=== PATIENT | female | born 1940 | race Caucasian/White ===

== ENCOUNTER 2021-11-22 17:04 | Inpatient (IN) | payer OTHER, SELFPAY ==
[~2021-11-22] VITALS: Ht 165.1 cm; Wt 60.8 kg
[2021-11-22 17:05] VITALS: BP_SYST 134
--- NOTE | 2021-11-22 17:05 | NUR ---
PT TRIAGED AND PLACED IN WAITING ROOM FOR AVAILABLE BED
--- NOTE | 2021-11-22 17:23 | NUR ---
Placed in room 2 . Placed on site monitor, blood pressure machine and pulse oximeter. To gown for exam. Side rails up. Report given to LIOR WONG.
--- NOTE | 2021-11-22 17:32 | NUR ---
BIB ALS FOR DESATURATION PER FAMILY. DR VILLARREAL AT BEDSIDE
--- NOTE | 2021-11-22 17:34 | NUR ---
ON MONITOR IN AFIB WITH RVR
[2021-11-22] MEDS ORDERED: dilTIAZem HCL IVP 5 MG/ML VIAL ONE (17:37)
[2021-11-22] MEDS ORDERED: IPRATROPIUM/ALBUTEROL SULFATE 3 ML AMPUL.NEB (DUONEB) INH ONE (17:45)
[2021-11-22] MEDS ORDERED: dilTIAZem HCL IVP 5 MG/ML VIAL IVP ONE ×2 (17:45→18:00)
[2021-11-22] MEDS ORDERED: guaiFENesin/DEXTROMETHORPHAN 10 ML UDC PO ONE (18:15)
[2021-11-22 18:22] LABS: ANION GAP 5 (5-15); CALCIUM 9.6 mg/dL (8.4-11.0); CHLORIDE 100 mmol/L (98-107); CREATININE 0.83 mg/dL (0.55-1.30); GLUCOSE 199 mg/dL (70-99); POTASSIUM 3.7 mmol/L (3.5-5.1); SODIUM SERUM 139 mmol/L (136-145); UREA NITROGEN, BLOOD 22 mg/dL (8-21)
[2021-11-22 18:28] LABS: BASOPHILS # (AUTO) 0.1 K/uL (0.0-0.2); BASOPHILS % (AUTO) 0.4 % (0.0-2.0); EOSINOPHILS % (AUTO) 0.1 % (0.0-4.0); HEMATOCRIT 39.5 % (36-48); HEMOGLOBIN 12.6 g/dL (12.0-16.0); LYMPHOCYTES # (AUTO) 0.5 K/uL (1.0-5.5); LYMPHOCYTES % (AUTO) 2.7 % (20.5-51.5); MEAN CORPUSCULAR HEMOGLOBIN 28 pg (27-31); MEAN CORPUSCULAR HGB CONC 32 % (32-36); MEAN CORPUSCULAR VOLUME 89 fL (79.0-98.0); MONOCYTES # (AUTO) 1.4 K/uL (0.0-1.0); MONOCYTES % (AUTO) 7.3 % (1.7-9.3); NEUTROPHILS # (AUTO) 16.9 K/uL (1.8-7.7); NEUTROPHILS % (AUTO) 89.5 % (40.0-70.0); PLATELET COUNT (AUTO) 158 K/uL (130-430); RED BLOOD CELL COUNT(AUTO) 4.45 MIL/uL (4.2-6.2); WHITE BLOOD COUNT (AUTO) 18.9 K/uL (4.8-10.8)
[2021-11-22 18:30] LABS: ALANINE AMINOTRANSFERASE 37 U/L (12-78); ALBUMIN 3.1 g/dL (3.4-4.8); ASPARTATE AMINOTRANSFERASE 26 U/L (10-37); LIPASE 274 U/L (73-393); PHOSPHORUS 3.9 mg/dL (2.7-4.5); TOTAL BILIRUBIN 0.6 mg/dL (0.0-1.0)
[2021-11-22] MEDS ORDERED: AZITHROMYCIN 250 MG TABLET PO ONE (19:15)
[2021-11-22] MEDS ORDERED: cefTRIAXone 1 GM in D5W 50 ML IV ONE (19:15)
--- NOTE | 2021-11-22 19:16 | NUR ---
REPORT TO WHITNEY
--- NOTE | 2021-11-22 19:17 | NUR ---
Assumed care of patient at change of shift. Introduced self to patient, positioned for comfort. currently on nrb w/ pox 100%. iv site to left forearm patent and intact. Spouse at bedside. bed to low position sr up, continue to monitor. Patient resting quietly. No acute distress noted. Vital signs within normal range.
[2021-11-22] MEDS ORDERED: cefTRIAXone 1 GM VIAL ONE (19:34)
--- NOTE | 2021-11-22 19:45 | NUR ---
Medicated 1gm of rocephin ivpb per MD orders. IV abx infusing with no s/s of infiltration at this time. Will cont to monitor and observe for any adverse reaction. continue to monitor.
[2021-11-22] MEDS ORDERED: AZITHROMYCIN 500 MG/VIAL (ZITHROMAX) IV ONE (19:49)
--- NOTE | 2021-11-22 20:22 | NUR ---
Medicated Azithromycin 500mg ivpb per MD orders. IV abx infusing with no s/s of infiltration at this time. Will cont to monitor and observe for any adverse reaction. bed to low position sr up. No adverse reaction noted to iv rocephin.
[2021-11-22] MEDS: DEXAMETHASONE SOD PHOSPHATE 10 MG/ML VIAL IVP SCH (21:30)
--- NOTE | 2021-11-22 22:44 | NUR ---
no change from previous assessment. bed to low position sr up, continue to monitor. Patient resting quietly. No acute distress noted. Vital signs within normal range.
--- NOTE | 2021-11-23 00:30 | NUR ---
Patient resting quietly. No acute distress noted. Vital signs within normal range. in no acute distress, still remains on 15 liters Nrb. continue to monitor.
--- NOTE | 2021-11-23 02:30 | NUR ---
Note byron in EDM - 11/23/21 at 0330 by [email or web address] Patient resting quietly. No acute distress noted. Vital signs within normal range. in no acute distress, still remains on 15 liters Nrb. continue to monitor.
--- NOTE | 2021-11-23 02:30 | NUR ---
Patient resting quietly. No acute distress noted. Vital signs within normal range. in no acute distress, still remains on 15 liters Nrb. continue to monitor. patient medicated as ordered w/ decadron ivp
[2021-11-23] MEDS: DEXAMETHASONE SOD PHOSPHATE 10 MG/ML VIAL IVP SCH (07:43)
[2021-11-23] MEDS ORDERED: METOPROLOL TARTRATE 5 MG/5 ML AMPUL ONE (07:55)
--- NOTE | 2021-11-23 07:55 | NUR ---
DR MIRANDA AT BEDSIDE PT IN AFIB WITH RVR BP STABLE. 5MG LOPRESSOR IVP GIVEN BP 148/41 HR REMAINS 122 AFTER LOPRESSOR PUSH
--- NOTE | 2021-11-23 08:00 | NUR ---
pt having trouble swallowing medication even when crushed. md aware
[2021-11-23] MEDS ORDERED: METOPROLOL TARTRATE 5 MG/5 ML AMPUL IVP ONE (08:15)
[2021-11-23] MEDS ORDERED: AZITHROMYCIN 500 MG in NS 250 ML IV ONE (09:00)
--- NOTE | 2021-11-23 09:04 | NUR ---
RT PLACED PT ON HF O2 20 LITERS 80% FIO2 PT TOLERATING WELL
--- NOTE | 2021-11-23 09:17 | NUR ---
WAITING IV PUMP TO TO ADM IV ABX
--- NOTE | 2021-11-23 09:24 | NUR ---
ULTRASOUND AT BEDSIDE
[2021-11-23] MEDS ORDERED: METOPROLOL TARTRATE 25 MG TABLET ONE (09:35)
[2021-11-23] MEDS: METOPROLOL TARTRATE 50 MG TABLET PO SCH ×2 (10:38→23:38)
[2021-11-23 11:08] LABS: ANION GAP 6 (5-15); CALCIUM 9.3 mg/dL (8.4-11.0); CHLORIDE 100 mmol/L (98-107); CREATININE 0.78 mg/dL (0.55-1.30); GLUCOSE 226 mg/dL (70-99); POTASSIUM 4.6 mmol/L (3.5-5.1); SODIUM SERUM 141 mmol/L (136-145); UREA NITROGEN, BLOOD 20 mg/dL (8-21)
[2021-11-23 11:14] LABS: BASOPHILS % (AUTO) 0.2 % (0.0-2.0); HEMATOCRIT 38.8 % (36-48); HEMOGLOBIN 12.4 g/dL (12.0-16.0); LYMPHOCYTES # (AUTO) 0.3 K/uL (1.0-5.5); LYMPHOCYTES % (AUTO) 3.9 % (20.5-51.5); MEAN CORPUSCULAR HEMOGLOBIN 29 pg (27-31); MEAN CORPUSCULAR HGB CONC 32 % (32-36); MEAN CORPUSCULAR VOLUME 89 fL (79.0-98.0); MONOCYTES # (AUTO) 0.1 K/uL (0.0-1.0); MONOCYTES % (AUTO) 1.4 % (1.7-9.3); NEUTROPHILS # (AUTO) 7.5 K/uL (1.8-7.7); NEUTROPHILS % (AUTO) 94.5 % (40.0-70.0); PLATELET COUNT (AUTO) 140 K/uL (130-430); RED BLOOD CELL COUNT(AUTO) 4.34 MIL/uL (4.2-6.2); RED CELL DISTRIBUTION WIDTH 14.6 % (9.0-15.0)
[2021-11-23 11:22] LABS: C-REACTIVE PROTEIN QUANT 1.9 mg/dL (0-0.5)
[2021-11-23] MEDS ORDERED: ACETAMINOPHEN 325 MG TABLET PO PRN ×2 (11:30→11:45)
[2021-11-23] MEDS ORDERED: ONDANSETRON HCL 4 MG/2 ML VIAL IVP PRN (11:30)
[2021-11-23] MEDS ORDERED: LORazepam 2 MG/ML VIAL IVP PRN (11:30)
[2021-11-23] MEDS ORDERED: IPRATROPIUM BROM 0.5 MG/2.5 ML VIAL.NEB (ATROVENT) INH PRN (11:45)
[2021-11-23] MEDS ORDERED: ALBUTEROL SULFATE 0.083% 2.5 MG/3 ML VIAL.NEB INH PRN (11:45)
[2021-11-23] MEDS: AZITHROMYCIN 500 MG in NS 250 ML IV SCH (11:49)
[2021-11-23] MEDS ORDERED: ENOXAPARIN SODIUM 40 MG/0.4 ML SYRINGE SUBCUT ONE (12:00)
[2021-11-23] MEDS: PIPERACILLIN/TAZO 2.25G/DEX-IS 50 ML IV SCH ×2 (12:15→23:24)
[2021-11-23] MEDS: ALBUTEROL MDI INHALATION 8 GM INH INH SCH ×2 (14:50→21:09)
[2021-11-23] MEDS ORDERED: ALBUTEROL SULFATE 0.083% 2.5 MG/3 ML VIAL.NEB INH SCH (15:00)
[2021-11-23] MEDS ORDERED: IPRATROPIUM BROM 0.5 MG/2.5 ML VIAL.NEB (ATROVENT) INH SCH (15:00)
--- NOTE | 2021-11-23 15:07 | NUR ---
pt drank 2 apple juices
--- NOTE | 2021-11-23 16:35 | NUR ---
pt taking grap juice without incident
[2021-11-23] MEDS ORDERED: RIVAROXABAN 15 MG TABLET PO SCH (18:00)
--- NOTE | 2021-11-23 18:01 | NUR ---
pt incontinent of urine bed changed pt cleaned
--- NOTE | 2021-11-23 18:38 | NUR ---
zosyn abx delayed due to rimdisvier infusing
--- NOTE | 2021-11-23 19:16 | NUR ---
REPORT TO ERIKA TINAJERO
--- NOTE | 2021-11-23 19:30 | NUR ---
in bed, not in distress, a&0x3, with iv antibitics ongoing on the left forearm.
--- NOTE | 2021-11-23 23:40 | NUR ---
vit c not available, not given, charge nurse informed, pharmacy informed,
[2021-11-24] MEDS: ALBUTEROL MDI INHALATION 8 GM INH INH SCH ×6 (00:30→23:00)
--- NOTE | 2021-11-24 01:11 | NUR ---
asleep, arousable, not in distress, all needs attended, denies any discomfort.
[2021-11-24] MEDS: ASCORBIC ACID 500 MG TABLET PO SCH ×3 (01:12→23:24)
[2021-11-24] MEDS: PIPERACILLIN/TAZO 2.25G/DEX-IS 50 ML IV SCH ×4 (01:14→18:50)
--- NOTE | 2021-11-24 02:21 | NUR ---
asleep, arousable, no needs requested at this time.
--- NOTE | 2021-11-24 03:37 | NUR ---
asleep, arousable, no needs requested at this time.
--- NOTE | 2021-11-24 05:49 | NUR ---
asleep, arousable, not in distress.
[2021-11-24 06:14] LABS: HEMATOCRIT 38.1 % (36-48); HEMOGLOBIN 12.1 g/dL (12.0-16.0); LYMPHOCYTES # (AUTO) 0.8 K/uL (1.0-5.5); MEAN CORPUSCULAR HEMOGLOBIN 28 pg (27-31); MEAN CORPUSCULAR HGB CONC 32 % (32-36); MEAN CORPUSCULAR VOLUME 89 fL (79.0-98.0); MONOCYTES % (AUTO) 7.5 % (1.7-9.3); NEUTROPHILS % (AUTO) 86.5 % (40.0-70.0); PLATELET COUNT (AUTO) 150 K/uL (130-430); RED BLOOD CELL COUNT(AUTO) 4.27 MIL/uL (4.2-6.2); RED CELL DISTRIBUTION WIDTH 14.6 % (9.0-15.0); WHITE BLOOD COUNT (AUTO) 13.9 K/uL (4.8-10.8)
[2021-11-24 06:37] LABS: ANION GAP 5 (5-15); CALCIUM 9.2 mg/dL (8.4-11.0); CHLORIDE 99 mmol/L (98-107); CREATININE 0.56 mg/dL (0.55-1.30); GLUCOSE 135 mg/dL (70-99); POTASSIUM 3.4 mmol/L (3.5-5.1); SODIUM SERUM 140 mmol/L (136-145); UREA NITROGEN, BLOOD 19 mg/dL (8-21)
[2021-11-24] MEDS: IPRATROPIUM/ALBUTEROL SULFATE 3 ML AMPUL.NEB (DUONEB) INH SCH ×3 (07:00→15:00)
[2021-11-24 07:14] LABS: C-REACTIVE PROTEIN QUANT 2.1 mg/dL (0-0.5)
--- NOTE | 2021-11-24 07:38 | NUR ---
Assumed care of pt. currently sleeping, NAD, was reported pt. was awake most of the night so POC to let pt. sleep till require meds or intervention
[2021-11-24 08:26] LABS: ERYTHROCYTE SEDIMENTATION RATE 14 MM/HR (0-20)
--- NOTE | 2021-11-24 10:30 | NUR ---
incontinent, pericare done linens changed, assisted with breakfast, pt. alert but confussed is cooperative
[2021-11-24] MEDS: DEXAMETHASONE SOD PHOSPHATE 10 MG/ML VIAL IVP SCH (10:45)
[2021-11-24] MEDS: METOPROLOL TARTRATE 50 MG TABLET PO SCH ×2 (10:46→22:49)
[2021-11-24] MEDS: CHOLECALCIFEROL (VITAMIN D3) 5,000 UNIT TABLET PO SCH (10:46)
[2021-11-24] MEDS: ENOXAPARIN SODIUM 40 MG/0.4 ML SYRINGE SUBCUT SCH (10:48)
--- NOTE | 2021-11-24 10:52 | NUR ---
Dr. Galeana at bedside
[2021-11-24] MEDS ORDERED: amLODIPine BESYLATE 5 MG TABLET PO ONE (11:30)
[2021-11-24] MEDS ORDERED: POTASSIUM CHLORIDE 20 MEQ TAB.PRT.SR PO ONE (11:30)
[2021-11-24] MEDS ORDERED: POTASSIUM CHLORIDE 20 MEQ/PKT PACKET PO ONE (11:45)
--- NOTE | 2021-11-24 12:11 | NUR ---
KDur tablets not given, pt. could not swallow, pharmacy changed to powder
--- NOTE | 2021-11-24 12:23 | NUR ---
RT here HIFLO decreased to 20L/min. and 60%
[2021-11-24] MEDS: AZITHROMYCIN 500 MG in NS 250 ML IV SCH (13:53)
--- NOTE | 2021-11-24 14:40 | NUR ---
RT NOTE: 1440 Patient moved from ER 2 to room 134 A with LIOR Rutherford. Patient was placed on 8LPM oxymizer, SpO2 between 97-99%. Patient alert and oriented. No respiratory distress noted. Will keep patient on oxymizer and will titrate as tolerated. No other issues during transport.
--- NOTE | 2021-11-24 14:45 | NUR ---
Patient will be admitted to care of Admitted to tele unit. Will go to room 134A. Belongings list completed. Complete and up to date summary report printed. SBAR report given at bedside with Sudana opportunity for questions.
--- NOTE | 2021-11-24 14:46 | NUR ---
Admission Note Received patient from ER with diagnosis of . Initial Plan of Care discussed-patient verbalized understanding. Oriented to room, call light, pain management and safety.vitals stabel pt in on 8 liter oximizer saturation 100%. denies marycarmen pain or sob.will conitnue to monitor
[2021-11-24 14:47] VITALS: BP_SYST 104
--- NOTE | 2021-11-24 17:30 | NUR ---
PT STABLE NOTIN ACUTE DISTRESS. DENIES ANY PAIN OR SOB. DUE MEDS GIVEN ORDERED.
--- NOTE | 2021-11-24 19:15 | NUR ---
CLOSING NOTES PT STABLE NOT IN ACUTE DISTRESS. EATING DINNER. DENIES ANYPAIN OR SOB. CALL LIGHT WITHIN REACH. REPORT GIVEN TO NIGHT RN.
[2021-11-24 21:19] VITALS: BP_SYST 134
[2021-11-24 23:36] VITALS: BP_SYST 136
[2021-11-25] MEDS: ALBUTEROL MDI INHALATION 8 GM INH INH SCH ×2 (03:00→07:00)
[2021-11-25 06:15] VITALS: BP_SYST 132
[2021-11-25] MEDS: PIPERACILLIN/TAZO 2.25G/DEX-IS 50 ML IV SCH ×4 (07:29→18:06)
--- NOTE | 2021-11-25 07:50 | NUR ---
Handoff with LIOR Melendez. Bandar Zazueta RN
[2021-11-25 09:06] LABS: BASOPHILS % (AUTO) 0.2 % (0.0-2.0); EOSINOPHILS % (AUTO) 0.1 % (0.0-4.0); HEMATOCRIT 39.3 % (36-48); HEMOGLOBIN 12.8 g/dL (12.0-16.0); LYMPHOCYTES # (AUTO) 1.1 K/uL (1.0-5.5); LYMPHOCYTES % (AUTO) 8.9 % (20.5-51.5); MEAN CORPUSCULAR HEMOGLOBIN 29 pg (27-31); MEAN CORPUSCULAR HGB CONC 33 % (32-36); MEAN CORPUSCULAR VOLUME 89 fL (79.0-98.0); MONOCYTES # (AUTO) 1.1 K/uL (0.0-1.0); MONOCYTES % (AUTO) 8.7 % (1.7-9.3); NEUTROPHILS # (AUTO) 10.1 K/uL (1.8-7.7); NEUTROPHILS % (AUTO) 82.1 % (40.0-70.0); PLATELET COUNT (AUTO) 163 K/uL (130-430); RED BLOOD CELL COUNT(AUTO) 4.44 MIL/uL (4.2-6.2); RED CELL DISTRIBUTION WIDTH 14.6 % (9.0-15.0); WHITE BLOOD COUNT (AUTO) 12.3 K/uL (4.8-10.8)
--- NOTE | 2021-11-25 09:50 | NUR ---
NRM: RT CHANGED O2 TO NON REBREATHER MASK 15L/MIN DUE TO DESAT.02 SAT=98-99%.
[2021-11-25] MEDS: CHOLECALCIFEROL (VITAMIN D3) 5,000 UNIT TABLET PO SCH (11:04)
[2021-11-25] MEDS: ASCORBIC ACID 500 MG TABLET PO SCH ×2 (11:04→21:30)
[2021-11-25] MEDS: METOPROLOL TARTRATE 50 MG TABLET PO SCH ×2 (11:04→21:30)
[2021-11-25] MEDS: amLODIPine BESYLATE 5 MG TABLET PO SCH (11:05)
[2021-11-25] MEDS: DEXAMETHASONE SOD PHOSPHATE 10 MG/ML VIAL IVP SCH (11:05)
[2021-11-25] MEDS: ENOXAPARIN SODIUM 40 MG/0.4 ML SYRINGE SUBCUT SCH (11:09)
[2021-11-25 11:29] VITALS: BP_SYST 148
[2021-11-25 11:40] LABS: ALANINE AMINOTRANSFERASE 43 U/L (12-78); ALBUMIN 2.6 g/dL (3.4-4.8); ANION GAP 5 (5-15); ASPARTATE AMINOTRANSFERASE 29 U/L (10-37); C-REACTIVE PROTEIN QUANT 0.6 mg/dL (0-0.5); CALCIUM 9.3 mg/dL (8.4-11.0); CHLORIDE 101 mmol/L (98-107); CREATININE 0.56 mg/dL (0.55-1.30); GLUCOSE 130 mg/dL (70-99); POTASSIUM 4.4 mmol/L (3.5-5.1); SODIUM SERUM 138 mmol/L (136-145); TOTAL BILIRUBIN 0.4 mg/dL (0.0-1.0); UREA NITROGEN, BLOOD 23 mg/dL (8-21)
[2021-11-25] MEDS: AZITHROMYCIN 500 MG in NS 250 ML IV SCH (13:43)
--- NOTE | 2021-11-25 15:00 | NUR ---
CHANGED TO OXYMIZER: PATIENT WEANED TO OXYMIZER @8L/MIN.O2 SATURATION=98=99%.
[2021-11-25 16:10] VITALS: BP_SYST 103
[2021-11-25 16:47] LABS: ERYTHROCYTE SEDIMENTATION RATE 7 MM/HR (0-20)
--- NOTE | 2021-11-25 18:30 | NUR ---
EVENING ROUNDS: PATIENT MAINTAINED ON OXYMIZER @8L/MIN.WITH GOOD SATURATION. PT HAVING DINNER.CALL LIGHT WITH IN REACH. BED LOCKED AT LOWEST POSITION. STABLE.
[2021-11-25 21:59] VITALS: BP_SYST 130
[2021-11-26] MEDS: PIPERACILLIN/TAZO 2.25G/DEX-IS 50 ML IV SCH ×3 (00:40→13:43)
[2021-11-26 01:02] VITALS: BP_SYST 121
--- NOTE | 2021-11-26 05:04 | NUR ---
Nutrition Update Jony Scale 16 noted. Pt admitted for COVID Pneumonia, Respiratory failure Diet: Cardiac BMI: 22.3 kg/m2 RD to follow per nutrition care standards.
[2021-11-26] MEDS: ALBUTEROL MDI INHALATION 8 GM INH INH SCH ×4 (07:00→20:40)
[2021-11-26 08:00] VITALS: BP_SYST 113
[2021-11-26] MEDS: ENOXAPARIN SODIUM 40 MG/0.4 ML SYRINGE SUBCUT SCH (09:00)
[2021-11-26] MEDS: ASCORBIC ACID 500 MG TABLET PO SCH ×2 (09:00→21:21)
[2021-11-26] MEDS: DEXAMETHASONE SOD PHOSPHATE 10 MG/ML VIAL IVP SCH (09:00)
[2021-11-26] MEDS: METOPROLOL TARTRATE 50 MG TABLET PO SCH ×2 (09:00→21:43)
[2021-11-26] MEDS: CHOLECALCIFEROL (VITAMIN D3) 5,000 UNIT TABLET PO SCH (09:00)
[2021-11-26] MEDS: amLODIPine BESYLATE 5 MG TABLET PO SCH (09:00)
--- NOTE | 2021-11-26 10:28 | NUR ---
Dietitian Recommendations *Recommend: add Ensure Enlive TID. *Continue Cardiac diet. MATTHIAS, LINK
[2021-11-26 11:31] VITALS: BP_SYST 93
[2021-11-26] MEDS: AZITHROMYCIN 500 MG in NS 250 ML IV SCH (15:11)
[2021-11-26 16:05] VITALS: BP_SYST 91
[2021-11-26 16:30] LABS: BASOPHILS % (AUTO) 0.1 % (0.0-2.0); HEMATOCRIT 36.6 % (36-48); HEMOGLOBIN 11.8 g/dL (12.0-16.0); LYMPHOCYTES # (AUTO) 0.4 K/uL (1.0-5.5); LYMPHOCYTES % (AUTO) 2.8 % (20.5-51.5); MEAN CORPUSCULAR HEMOGLOBIN 29 pg (27-31); MEAN CORPUSCULAR HGB CONC 32 % (32-36); MEAN CORPUSCULAR VOLUME 89 fL (79.0-98.0); MONOCYTES # (AUTO) 0.3 K/uL (0.0-1.0); MONOCYTES % (AUTO) 1.8 % (1.7-9.3); NEUTROPHILS # (AUTO) 15.4 K/uL (1.8-7.7); NEUTROPHILS % (AUTO) 95.3 % (40.0-70.0); PLATELET COUNT (AUTO) 159 K/uL (130-430); RED BLOOD CELL COUNT(AUTO) 4.11 MIL/uL (4.2-6.2); RED CELL DISTRIBUTION WIDTH 14.7 % (9.0-15.0); WHITE BLOOD COUNT (AUTO) 16.2 K/uL (4.8-10.8)
[2021-11-26 16:59] LABS: ALANINE AMINOTRANSFERASE 32 U/L (12-78); ALBUMIN 2.5 g/dL (3.4-4.8); ANION GAP 7 (5-15); ASPARTATE AMINOTRANSFERASE 20 U/L (10-37); CHLORIDE 101 mmol/L (98-107); CREATININE 0.52 mg/dL (0.55-1.30); GLUCOSE 185 mg/dL (70-99); SODIUM SERUM 139 mmol/L (136-145); TOTAL BILIRUBIN 0.8 mg/dL (0.0-1.0); UREA NITROGEN, BLOOD 21 mg/dL (8-21)
--- NOTE | 2021-11-26 17:00 | NUR ---
NURSING NOTES 0700AM-1700: 0725AM: PATIENT IS RESTING IN BED. NO ADDITIONAL DISTRESS NOTED. BED IN LOW AND LOCK POSITION. BED ALARM ON. CALL LIGHT WITHIN REACH. STABLE CONDITION AT THIS TIME. WILL CONT TO MONITOR. 0800AM: EXPLAINED POC AND PATIENT VERBALIZED UNDERSTANDING. PATIENT IS AAOX4, ABLE TO MAKE NEEDS KNOWN. NO ADDITIONAL DISTRESS NOTED. WILL CONT TO MONITOR. 1000AM: PATIENT IS RESTING IN BED WATCHING, AWAKE. MADE AWARE TO PATIENT THAT HER HAS BEEN CALLING HER CELL PHONE. CELL PHONE IS ON. PER PATIENT, SHE WILL CALL HIM LATER. NO ADDITIONAL DISTRESS NOTED. WILL CONT TO MONITOR. 1100AM: CALLED PATIENT'S USING THE ROOM PHONE. PATIENT IS TALKING TO HER AT THIS TIME. WILL CONT TO MONITOR. 1200PM:PATIENT IS RESTING IN BED TRYING TO EAT HER LUNCH. NO ADDITIONAL DISTRESS NOTED. WILL CONT TO MONITOR. 1400: PATIENT IS RESTING IN BED, ASLEEP. NO CHANGE FROM PREVIOUS ASSESSMENT. WILL CONT TO MONITOR. 1600: PATIENT IS RESTING IN BED. CALLED HER AGAIN USING THE ROOM PHONE. NO CHANGE FROM PREVIOUS ASSESSMENT. WILL CONT TO MONITOR. 1700: PATIENT IS RESTING IN BED, ASLEEP. NO CHANGE FROM PREVIOUS ASSESSMENT. WILL CONT TO MONITOR
[2021-11-26 17:30] VITALS: BP_SYST 91
[2021-11-26 18:57] LABS: C-REACTIVE PROTEIN QUANT 0.3 mg/dL (0-0.5)
--- NOTE | 2021-11-26 18:58 | NUR ---
CLOSING NOTES: PATIENT IS RESTING IN BED TRYING TO EAT HER DINNER. CALL LIGHT WITHIN REACH. HOB 60<. NO ADDITIONAL DISTRESS NOTED. STABLE CONDITION THROUGHOUT THE SHIFT. WILL CONT TO MONITOR.
[2021-11-26] MEDS: IPRATROPIUM/ALBUTEROL SULFATE 3 ML AMPUL.NEB (DUONEB) INH SCH (19:50)
[2021-11-26 21:41] VITALS: BP_SYST 123
[2021-11-27] MEDS: PIPERACILLIN/TAZO 2.25G/DEX-IS 50 ML IV SCH ×4 (00:16→19:10)
[2021-11-27 00:32] VITALS: BP_SYST 128
[2021-11-27] MEDS: ALBUTEROL MDI INHALATION 8 GM INH INH SCH ×6 (00:55→21:26)
[2021-11-27] MEDS: IPRATROPIUM/ALBUTEROL SULFATE 3 ML AMPUL.NEB (DUONEB) INH SCH ×4 (00:56→16:10)
--- NOTE | 2021-11-27 07:07 | NUR ---
endorsed care to day tn. pt in bed asleep. all needs meet at this time.
--- NOTE | 2021-11-27 07:25 | NUR ---
OPENING NOTES: 0725AM: PATIENT IS RESTING IN BED. NO ADDITIONAL DISTRESS NOTED. BED IN LOW AND LOCK POSITION. BED ALARM ON. CALL LIGHT WITHIN REACH. EXPLAINED POC AND PATIENT VERBALIZED UNDERSTANDING. PATIENT IS AAOX4, ABLE TO MAKE NEEDS KNOWN. NO ADDITIONAL DISTRESS NOTED. STABLE CONDITION AT THIS TIME. WILL CONT TO MONITOR.
[2021-11-27 08:00] VITALS: BP_SYST 117
[2021-11-27 08:16] LABS: BASOPHILS % (AUTO) 0.3 % (0.0-2.0); HEMATOCRIT 38.9 % (36-48); HEMOGLOBIN 12.6 g/dL (12.0-16.0); LYMPHOCYTES % (AUTO) 5.9 % (20.5-51.5); MEAN CORPUSCULAR HEMOGLOBIN 29 pg (27-31); MEAN CORPUSCULAR HGB CONC 32 % (32-36); MEAN CORPUSCULAR VOLUME 88 fL (79.0-98.0); MONOCYTES # (AUTO) 0.9 K/uL (0.0-1.0); MONOCYTES % (AUTO) 5.2 % (1.7-9.3); NEUTROPHILS # (AUTO) 15.2 K/uL (1.8-7.7); NEUTROPHILS % (AUTO) 88.6 % (40.0-70.0); PLATELET COUNT (AUTO) 149 K/uL (130-430); RED BLOOD CELL COUNT(AUTO) 4.41 MIL/uL (4.2-6.2); RED CELL DISTRIBUTION WIDTH 14.8 % (9.0-15.0); WHITE BLOOD COUNT (AUTO) 17.2 K/uL (4.8-10.8)
[2021-11-27 08:56] LABS: ALANINE AMINOTRANSFERASE 29 U/L (12-78); ALBUMIN 2.4 g/dL (3.4-4.8); ANION GAP 1 (5-15); ASPARTATE AMINOTRANSFERASE 16 U/L (10-37); C-REACTIVE PROTEIN QUANT 1.1 mg/dL (0-0.5); CALCIUM 9.3 mg/dL (8.4-11.0); CHLORIDE 103 mmol/L (98-107); CREATININE 0.57 mg/dL (0.55-1.30); GLUCOSE 117 mg/dL (70-99); POTASSIUM 4.7 mmol/L (3.5-5.1); SODIUM SERUM 138 mmol/L (136-145); TOTAL BILIRUBIN 0.8 mg/dL (0.0-1.0); UREA NITROGEN, BLOOD 17 mg/dL (8-21)
[2021-11-27] MEDS: METOPROLOL TARTRATE 50 MG TABLET PO SCH ×2 (09:00→22:22)
[2021-11-27] MEDS: amLODIPine BESYLATE 5 MG TABLET PO SCH (09:00)
[2021-11-27] MEDS: ENOXAPARIN SODIUM 40 MG/0.4 ML SYRINGE SUBCUT SCH (09:00)
[2021-11-27] MEDS: ASCORBIC ACID 500 MG TABLET PO SCH ×2 (09:00→22:04)
[2021-11-27] MEDS: CHOLECALCIFEROL (VITAMIN D3) 5,000 UNIT TABLET PO SCH (09:00)
[2021-11-27] MEDS: DEXAMETHASONE SOD PHOSPHATE 10 MG/ML VIAL IVP SCH (09:00)
[2021-11-27 09:48] LABS: ERYTHROCYTE SEDIMENTATION RATE 9 MM/HR (0-20)
[2021-11-27 12:00] VITALS: BP_SYST 110
[2021-11-27] MEDS: AZITHROMYCIN 500 MG in NS 250 ML IV SCH (13:00)
[2021-11-27 16:00] VITALS: BP_SYST 101
--- NOTE | 2021-11-27 18:45 | NUR ---
CLOSING NOTES: PATIENT IS RESTING IN BED, ASLEEP. CALL LIGHT WITHIN REACH. HOB 30< PATIENT REQUESTED. NO ADDITIONAL DISTRESS NOTED. STABLE CONDITION THROUGHOUT THE SHIFT. WILL CONT TO MONITOR.
[2021-11-27 22:00] VITALS: BP_SYST 119
[2021-11-28 00:30] VITALS: BP_SYST 126
[2021-11-28] MEDS: PIPERACILLIN/TAZO 2.25G/DEX-IS 50 ML IV SCH ×5 (00:30→23:47)
[2021-11-28] MEDS: ALBUTEROL MDI INHALATION 8 GM INH INH SCH ×6 (03:10→21:08)
[2021-11-28] MEDS: IPRATROPIUM/ALBUTEROL SULFATE 3 ML AMPUL.NEB (DUONEB) INH SCH ×5 (07:00→23:00)
[2021-11-28 07:57] LABS: BASOPHILS % (AUTO) 0.3 % (0.0-2.0); EOSINOPHILS % (AUTO) 0.1 % (0.0-4.0); HEMATOCRIT 36.5 % (36-48); HEMOGLOBIN 11.7 g/dL (12.0-16.0); LYMPHOCYTES # (AUTO) 0.9 K/uL (1.0-5.5); LYMPHOCYTES % (AUTO) 5.9 % (20.5-51.5); MEAN CORPUSCULAR HEMOGLOBIN 29 pg (27-31); MEAN CORPUSCULAR HGB CONC 32 % (32-36); MEAN CORPUSCULAR VOLUME 89 fL (79.0-98.0); MONOCYTES % (AUTO) 6.1 % (1.7-9.3); NEUTROPHILS # (AUTO) 13.7 K/uL (1.8-7.7); NEUTROPHILS % (AUTO) 87.6 % (40.0-70.0); PLATELET COUNT (AUTO) 137 K/uL (130-430); RED BLOOD CELL COUNT(AUTO) 4.11 MIL/uL (4.2-6.2); RED CELL DISTRIBUTION WIDTH 14.2 % (9.0-15.0); WHITE BLOOD COUNT (AUTO) 15.7 K/uL (4.8-10.8)
[2021-11-28 08:00] VITALS: BP_SYST 105
--- NOTE | 2021-11-28 08:00 | NUR ---
OPENING NOTE; received on bed, awake alert and confused, on oximizer at 6lpm, with productive cough, crackles heard when breathing. needs attended, comfort provided
[2021-11-28 08:38] LABS: ANION GAP 1 (5-15); C-REACTIVE PROTEIN QUANT 4.5 mg/dL (0-0.5); CALCIUM 9.2 mg/dL (8.4-11.0); CHLORIDE 104 mmol/L (98-107); CREATININE 0.61 mg/dL (0.55-1.30); GLUCOSE 123 mg/dL (70-99); POTASSIUM 5.6 mmol/L (3.5-5.1); SODIUM SERUM 140 mmol/L (136-145); UREA NITROGEN, BLOOD 19 mg/dL (8-21)
[2021-11-28 08:54] LABS: ERYTHROCYTE SEDIMENTATION RATE 13 MM/HR (0-20)
[2021-11-28] MEDS: ASCORBIC ACID 500 MG TABLET PO SCH ×2 (09:13→22:18)
[2021-11-28] MEDS: METOPROLOL TARTRATE 50 MG TABLET PO SCH ×2 (09:14→22:19)
[2021-11-28] MEDS: amLODIPine BESYLATE 5 MG TABLET PO SCH (09:14)
[2021-11-28] MEDS: CHOLECALCIFEROL (VITAMIN D3) 5,000 UNIT TABLET PO SCH (09:15)
[2021-11-28] MEDS: DEXAMETHASONE SOD PHOSPHATE 10 MG/ML VIAL IVP SCH (09:15)
[2021-11-28] MEDS: ENOXAPARIN SODIUM 40 MG/0.4 ML SYRINGE SUBCUT SCH (09:19)
--- NOTE | 2021-11-28 10:27 | NUR ---
seen by PT, able to walk inside the room with PT asssistance, desatting after activity, but recovered oxygenation quickly.
[2021-11-28 11:31] VITALS: BP_SYST 118
[2021-11-28 12:15] VITALS: BP_SYST 116
[2021-11-28 15:35] VITALS: BP_SYST 114
--- NOTE | 2021-11-28 18:31 | NUR ---
called Dr. arteaga office and wait for a callback, patient on uncontrolled Afib , NH- 135-145 bpm.
--- NOTE | 2021-11-28 18:49 | NUR ---
Dr. Hinkle called back and ordered Amiodarone 300mg IV x1, and call Dr. Galeana for other order. called Dr. Galeana and will wait for his callback
--- NOTE | 2021-11-28 18:55 | NUR ---
dr. Galeana called back and cancelled Dr. Hinkle Amiodarone 300mg IV since he said it is a high dose and ordered Amiodarone 150mg x1, netoprolol 2.5mg IV q 6hours if HR >130
[2021-11-28] MEDS ORDERED: AMIODARONE HCL 150 MG in D5W 100 ML IV SCH (19:15)
[2021-11-28] MEDS ORDERED: AMIODARONE HCL 150 MG/3ML VIAL IVP ONE (19:45)
[2021-11-28 20:00] VITALS: BP_SYST 112
[2021-11-28] MEDS ORDERED: AMIODARONE HCL 150 MG in D5W 100 ML IV ONE (20:15)
--- NOTE | 2021-11-28 21:00 | NUR ---
CLARIFIED AMIODARONE 150MG ORDER IF TITRATABLE VS IVP VS IV BOLUS X 1? PAGED DR. MIRANDA. DR. MIRANDA ORDERED AMIODARONE 150MG IV BOLUS MIXED IN 100ML D5W IN OVER 10MINS X 1 NOTED & CARRIED OUT. PT IS CURRENTLY AWAKE,ALERT & ORIENTED X 3. W/ HR= 103-108BPM. MEDS GIVEN ORDERED. WILL CON'T TO MONITOR.
[2021-11-28] MEDS ORDERED: AMIODARONE HCL 150 MG/3ML VIAL ONE (22:42)
[2021-11-29] VITALS: BP_SYST 112
[2021-11-29 04:00] VITALS: BP_SYST 114
[2021-11-29] MEDS: PIPERACILLIN/TAZO 2.25G/DEX-IS 50 ML IV SCH ×3 (06:50→17:57)
--- NOTE | 2021-11-29 07:45 | NUR ---
Opening Notes Patient is awake, alert and oriented x4. Mild SOB while at rest. Pt remains on 6 liters oximizer, tolerating well. Pt is noted with thick secretions, suction as needed. Phelgm is thick, white in color. Congested. Pt denies any pain at this time. IV site on right wrist 22 gauge intact, C/D/I. Pt remains on bedrest at this time. Cardiac monitoring, AFIB controlled, HR 96. Droplet precautions. All needs met. Safety and fall precautions in place. Bed in lowest position, alarm on, locked. Will continue to monitor.
[2021-11-29 08:06] LABS: BASOPHILS % (AUTO) 0.1 % (0.0-2.0); HEMATOCRIT 37.2 % (36-48); HEMOGLOBIN 12.2 g/dL (12.0-16.0); LYMPHOCYTES # (AUTO) 0.8 K/uL (1.0-5.5); LYMPHOCYTES % (AUTO) 5.3 % (20.5-51.5); MEAN CORPUSCULAR HEMOGLOBIN 29 pg (27-31); MEAN CORPUSCULAR HGB CONC 33 % (32-36); MEAN CORPUSCULAR VOLUME 88 fL (79.0-98.0); MONOCYTES # (AUTO) 0.7 K/uL (0.0-1.0); MONOCYTES % (AUTO) 4.9 % (1.7-9.3); NEUTROPHILS # (AUTO) 12.9 K/uL (1.8-7.7); NEUTROPHILS % (AUTO) 89.7 % (40.0-70.0); PLATELET COUNT (AUTO) 135 K/uL (130-430); RED BLOOD CELL COUNT(AUTO) 4.23 MIL/uL (4.2-6.2); RED CELL DISTRIBUTION WIDTH 14.8 % (9.0-15.0); WHITE BLOOD COUNT (AUTO) 14.4 K/uL (4.8-10.8)
[2021-11-29] MEDS: ASCORBIC ACID 500 MG TABLET PO SCH ×2 (08:43→21:46)
[2021-11-29] MEDS: DEXAMETHASONE SOD PHOSPHATE 10 MG/ML VIAL IVP SCH (08:43)
[2021-11-29] MEDS: amLODIPine BESYLATE 5 MG TABLET PO SCH (08:44)
[2021-11-29] MEDS: METOPROLOL TARTRATE 50 MG TABLET PO SCH ×2 (08:44→21:00)
[2021-11-29] MEDS: CHOLECALCIFEROL (VITAMIN D3) 5,000 UNIT TABLET PO SCH (08:45)
[2021-11-29] MEDS: ENOXAPARIN SODIUM 40 MG/0.4 ML SYRINGE SUBCUT SCH (08:56)
[2021-11-29 10:16] VITALS: BP_SYST 128
[2021-11-29 11:44] LABS: C-REACTIVE PROTEIN QUANT 3.1 mg/dL (0-0.5)
[2021-11-29 12:00] VITALS: BP_SYST 127
--- NOTE | 2021-11-29 12:00 | NUR ---
Notes Patient is sleeping at this time. No acute distress noted. Pt remains on 2 liters via NC, still noted with thick secretions, suctioned as needed. No signs of pain. Repositioned in bed with pillows. Will continue to monitor.
[2021-11-29 12:43] LABS: ANION GAP 5 (5-15); CALCIUM 9.1 mg/dL (8.4-11.0); CHLORIDE 105 mmol/L (98-107); CREATININE 0.51 mg/dL (0.55-1.30); GLUCOSE 154 mg/dL (70-99); POTASSIUM 4.2 mmol/L (3.5-5.1); SODIUM SERUM 141 mmol/L (136-145); UREA NITROGEN, BLOOD 23 mg/dL (8-21)
[2021-11-29 14:35] LABS: ERYTHROCYTE SEDIMENTATION RATE 9 MM/HR (0-20)
[2021-11-29 16:00] VITALS: BP_SYST 128
--- NOTE | 2021-11-29 19:00 | NUR ---
Closing Notes Patient is awake, alert and oriented x4. No resp distress noted at this time. Breathing is even and unlabored. Pt reports congestion, thick secretions. Pt remains on 2 liters via NC, tolerating well. IV site on right FA 22 gauge intact, IV ATB infusing well. Pericare provided, incontinent. Pt noted with redness on coccyx and gluteal folds. All needs met. Safety and fall precautions in place. Bed in lowest position, alarm on, locked. Will continue to monitor.
--- NOTE | 2021-11-29 20:05 | NUR ---
Opening notes Pt AAOx4, VSS, afebrile. O2 sat 97% on 2L via NC. No s/s distress noted. Call light within reach. Bed low, locked, siderails up x3, alarm on. Covid isolation maintained. To monitor.
[2021-11-29 20:08] VITALS: BP_SYST 109
[2021-11-29] MEDS: ALBUTEROL MDI INHALATION 8 GM INH INH SCH (21:23)
--- NOTE | 2021-11-29 21:40 | NUR ---
Called Family for pt Called pt's for pt. Pt talking w/ no distress noted. Meds passed crushed with applesauce, pt tolerated well. Aspiration precaution in place. To monitor.
[2021-11-30] VITALS (7 sets, daily range): BP systolic 110–147
--- NOTE | 2021-11-30 04:05 | NUR ---
Rounds/pericare Pt incontinent of urine, pericare/skin care provided with MOTOR COACH OPERATOR assist. Sacral dressing C/D/I. Pt requested more blankets. Blankets provided and pt made comfortable. O2 sat 96% on 2L NC. Call light within reach. to monitor.
--- NOTE | 2021-11-30 06:18 | NUR ---
Closing notes Pt awake, no s/s distress or sob. O2 sat 97% on 2L NC. Security adjusted room temp and pt states its better. IV saline lock R. wrist clear and patent. Call light within reach. Bed low, locked, siderails up x3, alarm on. Safety/Covid isolation maintained. To endorse to AM nurse.
[2021-11-30 07:40] LABS: BASOPHILS % (AUTO) 0.2 % (0.0-2.0); HEMATOCRIT 37.2 % (36-48); LYMPHOCYTES # (AUTO) 0.7 K/uL (1.0-5.5); LYMPHOCYTES % (AUTO) 4.5 % (20.5-51.5); MEAN CORPUSCULAR HEMOGLOBIN 29 pg (27-31); MEAN CORPUSCULAR HGB CONC 32 % (32-36); MEAN CORPUSCULAR VOLUME 89 fL (79.0-98.0); MONOCYTES # (AUTO) 0.6 K/uL (0.0-1.0); MONOCYTES % (AUTO) 4.1 % (1.7-9.3); NEUTROPHILS # (AUTO) 14.2 K/uL (1.8-7.7); NEUTROPHILS % (AUTO) 91.2 % (40.0-70.0); PLATELET COUNT (AUTO) 157 K/uL (130-430); RED BLOOD CELL COUNT(AUTO) 4.19 MIL/uL (4.2-6.2); RED CELL DISTRIBUTION WIDTH 14.3 % (9.0-15.0); WHITE BLOOD COUNT (AUTO) 15.6 K/uL (4.8-10.8)
[2021-11-30 08:14] LABS: ALANINE AMINOTRANSFERASE 22 U/L (12-78); ALBUMIN 2.5 g/dL (3.4-4.8); ANION GAP 7 (5-15); ASPARTATE AMINOTRANSFERASE 12 U/L (10-37); CALCIUM 9.2 mg/dL (8.4-11.0); CHLORIDE 101 mmol/L (98-107); CREATININE 0.53 mg/dL (0.55-1.30); GLUCOSE 183 mg/dL (70-99); POTASSIUM 5.1 mmol/L (3.5-5.1); SODIUM SERUM 141 mmol/L (136-145); TOTAL BILIRUBIN 0.8 mg/dL (0.0-1.0); UREA NITROGEN, BLOOD 21 mg/dL (8-21)
[2021-11-30] MEDS: ALBUTEROL MDI INHALATION 8 GM INH INH SCH ×2 (08:20→12:07)
--- NOTE | 2021-11-30 08:20 | NUR ---
heart rate went up to 140-150's. Dr. Galeana here and made aware.
[2021-11-30] MEDS: METOPROLOL TARTRATE 5 MG/5 ML AMPUL IVP PRN ×2 (08:34→18:24)
[2021-11-30] MEDS: DEXAMETHASONE SOD PHOSPHATE 10 MG/ML VIAL IVP SCH (08:45)
[2021-11-30] MEDS: CHOLECALCIFEROL (VITAMIN D3) 5,000 UNIT TABLET PO SCH (08:45)
[2021-11-30] MEDS: ASCORBIC ACID 500 MG TABLET PO SCH ×2 (08:45→21:53)
[2021-11-30] MEDS: amLODIPine BESYLATE 5 MG TABLET PO SCH (08:46)
[2021-11-30] MEDS: ENOXAPARIN SODIUM 40 MG/0.4 ML SYRINGE SUBCUT SCH (08:52)
[2021-11-30] MEDS: METOPROLOL TARTRATE 50 MG TABLET PO SCH ×2 (09:21→22:38)
--- NOTE | 2021-11-30 10:46 | NUR ---
Notes No distress, resting , heart rate at 100
--- NOTE | 2021-11-30 12:41 | NUR ---
Notes- per ultrasound patient does not have enough fluid for thoracentesis.
[2021-11-30 12:57] LABS: ERYTHROCYTE SEDIMENTATION RATE 10 MM/HR (0-20)
--- NOTE | 2021-11-30 14:24 | NUR ---
Discharge Planing: DC faxed pt [phone] [phone] [facility] health PT and home oxygen.
--- NOTE | 2021-11-30 15:09 | NUR ---
Notes- resting in bed, no pain, call light within reach. Enc to call for help as needed.
--- NOTE | 2021-11-30 18:25 | NUR ---
Notes hear rate is ranging from 125-140, pt is eating dinner. denies any discomfort. medicated with Lopressor as ordered.
[2021-11-30] MEDS: IPRATROPIUM/ALBUTEROL SULFATE 3 ML AMPUL.NEB (DUONEB) INH SCH ×2 (19:00→23:00)
[2021-12-01] MEDS: ALBUTEROL MDI INHALATION 8 GM INH INH SCH ×6 (00:42→15:47)
[2021-12-01 04:24] VITALS: BP_SYST 134
[2021-12-01 06:50] LABS: BASOPHILS % (AUTO) 0.1 % (0.0-2.0); HEMATOCRIT 37.8 % (36-48); HEMOGLOBIN 12.1 g/dL (12.0-16.0); LYMPHOCYTES % (AUTO) 5.9 % (20.5-51.5); MEAN CORPUSCULAR HEMOGLOBIN 29 pg (27-31); MEAN CORPUSCULAR HGB CONC 32 % (32-36); MEAN CORPUSCULAR VOLUME 90 fL (79.0-98.0); MONOCYTES # (AUTO) 0.8 K/uL (0.0-1.0); MONOCYTES % (AUTO) 4.6 % (1.7-9.3); NEUTROPHILS # (AUTO) 15.8 K/uL (1.8-7.7); NEUTROPHILS % (AUTO) 89.4 % (40.0-70.0); PLATELET COUNT (AUTO) 140 K/uL (130-430); RED BLOOD CELL COUNT(AUTO) 4.21 MIL/uL (4.2-6.2); RED CELL DISTRIBUTION WIDTH 14.5 % (9.0-15.0); WHITE BLOOD COUNT (AUTO) 17.7 K/uL (4.8-10.8)
[2021-12-01 07:17] LABS: ANION GAP 5 (5-15); CALCIUM 9.1 mg/dL (8.4-11.0); CHLORIDE 101 mmol/L (98-107); CREATININE 0.53 mg/dL (0.55-1.30); GLUCOSE 213 mg/dL (70-99); POTASSIUM 5.1 mmol/L (3.5-5.1); SODIUM SERUM 139 mmol/L (136-145); UREA NITROGEN, BLOOD 26 mg/dL (8-21)
[2021-12-01 07:55] VITALS: BP_SYST 147
[2021-12-01] MEDS: METOPROLOL TARTRATE 50 MG TABLET PO SCH (08:03)
[2021-12-01] MEDS: CHOLECALCIFEROL (VITAMIN D3) 5,000 UNIT TABLET PO SCH (08:03)
[2021-12-01] MEDS: amLODIPine BESYLATE 5 MG TABLET PO SCH (08:03)
[2021-12-01] MEDS: ASCORBIC ACID 500 MG TABLET PO SCH (08:03)
[2021-12-01] MEDS: DEXAMETHASONE SOD PHOSPHATE 10 MG/ML VIAL IVP SCH (08:04)
[2021-12-01] MEDS: ENOXAPARIN SODIUM 40 MG/0.4 ML SYRINGE SUBCUT SCH (08:07)
--- NOTE | 2021-12-01 08:10 | NUR ---
HR ELEVATED AT 134 AM MEDS GIVEN EARLY (LOPRESSOR AND AMLODIPINE)
[2021-12-01] MEDS: IPRATROPIUM/ALBUTEROL SULFATE 3 ML AMPUL.NEB (DUONEB) INH SCH ×3 (08:35→15:00)
--- NOTE | 2021-12-01 10:24 | NUR ---
DR WONG WAS HERE AND SEEN PT. WAS MADE AWARE THAT PT IS TOTAL ASSIST FROM BED TO CHAIR AND BACK. PT TOLD MD THAT SHE WANTS TO GO HOME.
--- NOTE | 2021-12-01 10:32 | NUR ---
SPOKE WITH DIRECTOR DIVERSITY MALIHA WYLIE POSSIBILITY OF GETTING HOME HEALTH AIDE FOR PT AT HOME.
[2021-12-01] MEDS ORDERED: DONE5TAB33 PO (11:24)
[2021-12-01] MEDS ORDERED: POTA-197 PO (11:24)
[2021-12-01] MEDS ORDERED: TOPXL100 PO (11:24)
[2021-12-01] MEDS ORDERED: MIRA50TA PO (11:24)
[2021-12-01] MEDS ORDERED: MEMA10TA PO (11:24)
[2021-12-01] MEDS ORDERED: CYAN100T44 PO (11:24)
[2021-12-01] MEDS ORDERED: CYAN100010 PO (11:24)
--- NOTE | 2021-12-01 11:51 | NUR ---
ORDNANCE ARTIFICER HELPER left a follow up message for KELSEY Curiel from [facility] to inquire regarding HH/ oxygen possible DC today. ORDNANCE ARTIFICER HELPER also provided RN with information (due to COVID isolation) on Caregiver assistance for Pt; both private pay and IHSS, per , had received caregiving assistance in the past> ORDNANCE ARTIFICER HELPER included additional referrals for senior services should the Pt, need them.
[2021-12-01] MEDS ORDERED: MONT-40 PO (11:54)
[2021-12-01] MEDS ORDERED: SLOW MAG PO (11:54)
[2021-12-01] MEDS ORDERED: VIT D2 PO (11:54)
[2021-12-01] MEDS ORDERED: LIP10 PO (11:54)
[2021-12-01] MEDS ORDERED: SER25 PO (11:54)
[2021-12-01] MEDS ORDERED: OCUVITE PO (11:54)
[2021-12-01] MEDS ORDERED: METF-1069 PO (11:54)
[2021-12-01] MEDS ORDERED: RIVA15TA PO (11:54)
[2021-12-01] MEDS ORDERED: FERR-69 PO (11:54)
[2021-12-01] MEDS ORDERED: METF-518 PO (11:54)
[2021-12-01] MEDS ORDERED: FOLI-43 PO ×2 (11:54)
[2021-12-01 12:00] VITALS: BP_SYST 140
[2021-12-01] MEDS ORDERED: DEC4 PO (12:05)
[2021-12-01] MEDS ORDERED: VIT C PO (12:07)
[2021-12-01] MEDS ORDERED: ZINC220T4 PEG (12:08)
[2021-12-01] MEDS ORDERED: FAMO40TA7 PO (12:09)
[2021-12-01] MEDS: METOPROLOL TARTRATE 5 MG/5 ML AMPUL IVP PRN (13:19)
[2021-12-01 13:26] VITALS: BP_SYST 140
--- NOTE | 2021-12-01 14:11 | NUR ---
PER DCP / DAY CARE HOME MOTHER, MELODYN IS THRU [employer] TEL NO [phone].
--- NOTE | 2021-12-01 16:00 | NUR ---
D/C Patient Patient given medication reconciliation form and D/C instructions. Exit Care provided. Patient verbalized understanding. MD discussed with patient the results and treatment provided. Ambulatory with assist, discharge to home with homehealth nurse. Pt on home o2, pt sent home with home o2, said pt has concentrator and o2 cylinder. Patient in stable condition, ID band removed. IV catheter removed, intact and dressing applied, no active bleeding. Rx of given. Instructed pt and pt's spouse to grain picker the medication from their pharmacy. Patient educated on pain management. All belongings sent with patient.
[2021-12-01 16:07] VITALS: BP_SYST 142
--- NOTE | 2021-12-03 07:44 | NUR ---
PHYSICAL THERAPY CO-SIGN The Physical Therapy Progress Notes documented by Caustic Strength Inspector have been reviewed. Reviewed/Co-Signed by: Ryan Lyons Documentation Done by: LILY BELLO PTA Addendum: 12/03/21 at 0745 by Ryan Lyons PT Amended: Links added.
== END 2021-12-01 16:00 | disposition home health service (06) | DRG 871 ==
LOC: SED 17:04 → STU 21:29
PROVIDERS: ADMIT Preventive Medicine Preventive Medicine/Occupational Environmental Medicine; ATTEND Preventive Medicine Preventive Medicine/Occupational Environmental Medicine
PROC: XW033E5 Introduction of Remdesivir Anti-infective into Peripheral Vein, Percutaneous Approach, New Technology Group 5 (ICD-10-PCS; 2021-11-24)
PROC: 0W9G3ZZ Drainage of Peritoneal Cavity, Percutaneous Approach (ICD-10-PCS; principal; 2021-12-01)
DX: A41.9 Sepsis, unspecified organism (principal); J96.01 Acute respiratory failure with hypoxia; U07.1 COVID-19; J12.82 Pneumonia due to coronavirus disease 2019; E43 Unspecified severe protein-calorie malnutrition; I48.20 Chronic atrial fibrillation, unspecified; J44.0 Chronic obstructive pulmonary disease with (acute) lower respiratory infection; J90 Pleural effusion, not elsewhere classified; E88.09 Other disorders of plasma-protein metabolism, not elsewhere classified; R73.9 Hyperglycemia, unspecified; I49.3 Ventricular premature depolarization; R53.81 Other malaise; E78.5 Hyperlipidemia, unspecified; E87.6 Hypokalemia; I10 Essential (primary) hypertension; I25.10 Atherosclerotic heart disease of native coronary artery without angina pectoris; Z95.2 Presence of prosthetic heart valve; Z95.1 Presence of aortocoronary bypass graft; Z79.01 Long term (current) use of anticoagulants; Z68.22 Body mass index [BMI] 22.0-22.9, adult
CPT/HCPCS: 32555; 36415; 36600; 71045; 76604; 80048; 80053; 82728; 82803-TC; 83615; 83690; 83735; 83880; 84100; 84484; 85025; 85379; 85651-TC; 86140; 93005; 93306; 94640; 94760; 96365; 96375; 97110-GP; 97116-GP; 97530-GP; 99291; G0378; J0282; J0456; J0696; J1100; J1650; J2543; J3490; J7050; Q0144